=== PATIENT | male | born 2000 ===

== ENCOUNTER 2018-07-04 16:00 | Emergency (ER) | payer OTHER ==
[2018-07-04 16:21] VITALS: BP 130/85; PULSE 66; RESP 18; TEMP 98.3; O2SAT 97
--- NOTE | 2018-07-04 16:36 | C.PDOC ---
History Of Present Illness 18 y/o male presents to the ED complaining of a right lower toothache for 2 days. States he took 1 tab of Tylenol at 10:00am today with no relief of pain. Patient has been unable to see his dentist this week. Otherwise he denies any fever or chills. Time Seen by Provider: 07/04/18 16:24 Chief Complaint (Nursing): Dental Pain History Per: Patient History/Exam Limitations: no limitations Onset/Duration Of Symptoms: Days Current Symptoms Are (Timing): Still Present Past Medical History Reviewed: Historical Data, Nursing Documentation, Vital Signs Vital Signs: Last Vital Signs Temp 98.3 F 07/04/18 16:19 Pulse 66 07/04/18 16:19 Resp 18 07/04/18 16:19 BP 130/85 07/04/18 16:19 Pulse Ox 97 07/04/18 16:19 - Medical History PMH: No Chronic Diseases Surgical History: No Surg Hx Family History: States: No Known Family Hx - Social History Hx Alcohol Use: Yes Hx Substance Use: No - Immunization History Hx Tetanus Toxoid Vaccination: No Hx Influenza Vaccination: No Hx Pneumococcal Vaccination: No Review Of Systems Except As Marked, All Systems Reviewed And Found Negative. Constitutional: Negative for: Fever, Chills ENT: Positive for: Other (dental pain). Negative for: Ear Pain Physical Exam - Physical Exam Appears: Non-toxic, No Acute Distress Skin: Normal Color, Warm, No Rash Head: Atraumatic, Normacephalic Eye(s): bilateral: PERRL, EOMI Oral Mucosa: Moist Teeth: Caries (right lower molar with jona) Gingiva: Swelling (mild swelling to gingiva on the buccal surface, no fluctuance ), No Abscess Neck: Supple Chest: Symmetrical Extremity: Bilateral: Atraumatic, Normal Color And Temperature, Normal ROM Neurological/Psych: Oriented x3, Normal Speech ED Course And Treatment O2 Sat by Pulse Oximetry: 97 (RA) Pulse Ox Interpretation: Normal Medical Decision Making Medical Decision Making: Impression: 18 year old with right toothache Plan: --Motrin PO --Amoxicillin PO Counseled regarding diagnosis and the importance of following up with dentist. Disposition - Disposition - PA / MANAGER OF PATIENT / Resident Statement MD/DO has reviewed & agrees with the documentation as recorded. - Scribe Statement The provider has reviewed the documentation as recorded by the Scribe (Allie Fried) All medical record entries made by the Scribe were at my direction and personally dictated by me. I have reviewed the chart and agree that the record accurately reflects my personal performance of the history, physical exam, medical decision making, and the department course for this patient. I have also personally directed, reviewed, and agree with the discharge instructions and disposition.
--- NOTE | 2018-07-04 16:52 | C.PDOC ---
Time Seen by Provider: 07/04/18 16:24 Chief Complaint (Nursing): Dental Pain Past Medical History Vital Signs: Last Vital Signs Temp 98.3 F 07/04/18 16:19 Pulse 66 07/04/18 16:19 Resp 18 07/04/18 16:19 BP 130/85 07/04/18 16:19 Pulse Ox 97 07/04/18 16:19 - Social History Hx Alcohol Use: Yes Hx Substance Use: No - Immunization History Hx Tetanus Toxoid Vaccination: No Hx Influenza Vaccination: No Hx Pneumococcal Vaccination: No ED Course And Treatment O2 Sat by Pulse Oximetry: 97 Medical Decision Making Medical Decision Making: pt with 2 days dental pain, visible jona on tooth with mild gingival swelling. d/c home with nsaids, amoxicillin and dental f/u Disposition Counseled Patient/Family Regarding: Diagnosis, Need For Followup, Rx Given - Disposition Referrals: [facility] [Outside] Disposition: HOME/ ROUTINE Disposition Time: 16:53 Condition: CRITICAL Additional Instructions: [place] antibiticos y medicamentos para el dolor segn lo recetado. Nori un seguimiento con el dentista lo antes posible. Vince la lista provista para sugerencias o pruebe la clnica de [facility]. Take antibiotics and pain medication as prescribed. Follow up with dentist as soon as possible. See list provided for suggestions or try [facility]. Prescriptions: Amoxicillin [Amoxil 500 mg Cap] 500 mg PO TID #30 cap Ibuprofen [Motrin] 600 mg PO TID #30 tab Instructions: Dental Pain (DC) Forms: Gen Discharge Inst [place]an, [facility] ([place]an) - Clinical Impression Clinical Impression: Dental caries
== END 2018-07-04 17:07 | disposition home or self-care (01) ==
LOC: C.ER 16:00
DX: K02.9 Dental caries, unspecified (principal)